=== PATIENT | female | born 1955 | race Two or more races ===

== ENCOUNTER 2018-06-12 21:34 | Inpatient (IN) | payer OTHER, MEDICAID | END 2018-06-14 23:16 | disposition short-term general hospital (02) | LOC: TELE 06-13 02:56 → ICU WEST 06-13 04:01 → ER 21:34 | DX: A41.9 Sepsis, unspecified organism (principal); R65.21 Severe sepsis with septic shock; G93.41 Metabolic encephalopathy; J18.9 Pneumonia, unspecified organism; M84.48XA Pathological fracture, other site, initial encounter for fracture; E11.9 Type 2 diabetes mellitus without complications; E78.5 Hyperlipidemia, unspecified; D72.829 Elevated white blood cell count, unspecified ==

== ENCOUNTER 2019-03-08 09:24 | Inpatient (IN) | payer OTHER, MEDICAID ==
[~2019-03-08] VITALS: Ht 147.3 cm; Wt 59.6 kg
[~2019-03-08 09:24] MED LIST: ALBUAER3 IN; Atenolol PO; CALC-317 OR; Diovan PO; LEFL20TA PO; LEVO500T21 PO; MONT10TA23 PO; MORP1TAB13 PO; MULTCHW OR; PANT40TA2 PO; SIMV-8 PO; TOFA5TAB OR; [UNRECOGNIZED DRUG - OTHER]
[2019-03-08] MEDS ORDERED: ACETAMINOPHEN 500 MG TAB PO ONE (10:45)
[2019-03-08] MEDS ORDERED: IBUPROFEN 600 MG TAB PO ONE (10:45)
[2019-03-08] MEDS ORDERED: SODIUM CHLORIDE 0.9% 1,000 ML IV ONE (10:48)
[2019-03-08] MEDS ORDERED: cefTRIAXone 1GM/50ML D5W 50 ML IV ONE (11:00)
[2019-03-08] MEDS ORDERED: ONDANSETRON HCL 4 MG/2 ML VIAL IV ONE (11:00)
[2019-03-08 11:45] LABS: Lymphocytes # (auto) 1.6 uL; Mean Corpuscular Hemoglobin 24.9 pg (28.0-32.0); Monocytes # (auto) 0.8 uL; Neutrophils # (auto) 8.1 uL; White Blood Cell 10.7 10^3/uL (4.4-10.8)
[2019-03-08 11:46] LABS: Basophils # (auto) 0 uL; Basophils % (auto) 0.4 % (0.0-2.0); Eosinophils # (auto) 0.2 uL; Eosinophils % (auto) 1.5 % (0.0-7.0); Hemoglobin 9.1 g/dL (12.2-16.2); Lymphocytes % (auto) 14.9 % (10.0-50.0); Mean Corpuscular Hgb Conc. 31.2 g/dL (32.0-36.0); Mean Corpuscular Volume 79.9 fL (80.0-100.0); Monocytes % (auto) 7.4 % (0.0-12.0); Neutrophils % (auto) 75.8 % (37.0-80.0); Nucleated Red Blood Cells % 0.1 %; Platelet Count (auto) 285 10^3/uL (140-450); Red Blood Cells 3.63 10^6/uL (4.0-5.20); Red Cell Distribution Width 17.6 % (11.8-14.3)
[2019-03-08 12:02] LABS: BUN/Creatinine Ratio 18.8; Calcium 7.7 mg/dL (8.5-10.1); Magnesium 2.3 mg/dL (1.6-2.6); Potassium 3.4 mmol/L (3.5-5.1)
[2019-03-08 12:05] LABS: Bilirubin, Total 0.3 mg/dL (0.2-1.0); Lactic Acid w/Reflex 2.9 mmol/L (0.4-2.0); Total Protein 6.7 g/dL (6.4-8.2)
[2019-03-08] MEDS ORDERED: LOSA-39 (14:50)
[2019-03-08] MEDS ORDERED: MORP30TA5 (14:50)
[2019-03-08] MEDS ORDERED: SERT-274 (14:50)
[2019-03-08] MEDS ORDERED: MONT10TA34 (14:50)
[2019-03-08] MEDS ORDERED: LINA5TAB PO (14:50)
[2019-03-08] MEDS ORDERED: PRE5T (14:50)
[2019-03-08] MEDS ORDERED: OYST500T29 (14:50)
[2019-03-08] MEDS ORDERED: SIMV10TA84 (14:50)
[2019-03-08] MEDS ORDERED: LEFL1TAB3 (14:50)
[2019-03-08] MEDS ORDERED: FLUT100I (14:50)
[2019-03-08] MEDS ORDERED: CANA100T (14:50)
[2019-03-08] MEDS ORDERED: PANT40T (14:50)
[2019-03-08] MEDS ORDERED: BUDE0.253 (14:50)
[2019-03-08] MEDS ORDERED: GAB100C PO (14:50)
[2019-03-08] MEDS ORDERED: OYST500T28 PO (14:50)
[2019-03-08] MEDS ORDERED: ATEN25TA (14:50)
[2019-03-08] MEDS ORDERED: PROAIR (14:50)
[2019-03-08] MEDS ORDERED: RIV20T (14:50)
[2019-03-08] MEDS ORDERED: traMADol HCL 50 MG TAB PO PRN (15:30)
[2019-03-08] MEDS ORDERED: ACYCLOVIR 5MG/KG Q8HR PER RX 0 ML IV SCH (15:30)
[2019-03-08] MEDS ORDERED: TEMAZEPAM 15 MG CAP PO PRN (15:30)
[2019-03-08] MEDS ORDERED: DEXTROSE (50%) 50ML SYRG IV PRN (15:30)
[2019-03-08] MEDS ORDERED: ACETAMINOPHEN 500 MG TAB PO PRN (15:30)
[2019-03-08] MEDS ORDERED: LACTULOSE 20Gm/30ML SOLN PO PRN (15:30)
[2019-03-08] MEDS ORDERED: ALBUTEROL SULF 2.5 MG/0.5ML(0.5%) NEB SOLN NEB PRN (15:30)
[2019-03-08] MEDS ORDERED: MORPHINE SULF INJ 2 MG/ML SYRINGE 1ML IV PRN (15:30)
[2019-03-08] MEDS ORDERED: PROMETHAZINE HCL 25 MG/ML 1ML IV PRN (15:30)
[2019-03-08] MEDS ORDERED: NITROGLYCERIN 0.4 MG SL TAB SL PRN (15:30)
[2019-03-08] MEDS ORDERED: OSELTAMIVIR 30 MG CAP PO ONE (16:00)
[2019-03-08] MEDS ORDERED: AZITHROMYCIN 500MG/ 250ML 250 ML IV SCH (16:00)
[2019-03-08] MEDS: SODIUM CHLORIDE 0.9% 1,000 ML IV SCH (16:30)
--- NOTE | 2019-03-08 17:00 | NUR ---
Telemetry admit from [facility]ANNA[facility] HAGEN admitted to Telemetry unit after SBAR received. Patient oriented to EMMA KU, primary RN, unit, room, bed, and unit policies regarding patient care and visiting hours. Patient now on continuous telemetry monitoring, tele box # 48 and telemetry reading on arrival to unit is . Patient placed on bedside oxygen, weighed by bed scale and encouraged to call if they need something. All questions and concerns addressed, patient verbalized understanding.
[2019-03-08 17:13] VITALS: BP 110/89
[2019-03-08] MEDS: InsuLIN REG 1unit/0.01ml Soln (100units/ml) SC SCH ×2 (17:47→21:42)
[2019-03-08] MEDS: ACCU-CHEK COMFORT CURVE STRIP VI SCH ×2 (17:48→21:42)
[2019-03-08 17:53] VITALS: BP 156/92
--- NOTE | 2019-03-08 17:58 | NUR ---
Per ER nurse Naty have no ideal when was the last time patient urinated. No UA sample at this time.
--- NOTE | 2019-03-08 18:00 | NUR ---
Flu A and B : negative , Tamiflu discontinue per protocol.
--- NOTE | 2019-03-08 19:20 | NUR ---
Opening Shift Note Assumed care of patient, awake and alert. No S/S of distress/SOB or pain. Instructed on POC and to call for assist PRN, will continue to monitor for changes Q1hr and PRN.
[2019-03-08] MEDS: ALBUTEROL SULF 2.5 MG/0.5ML(0.5%) NEB SOLN NEB SCH (19:36)
[2019-03-08] MEDS: IPRATROPIUM BROM 0.5 MG/2.5ML INH SOL NEB SCH (19:36)
[2019-03-08 20:00] VITALS: BP_SYST 132; BP_DIAS 80; BP_DIAS 95
[2019-03-08] MEDS: ACYCLOVIR SOD 50MG/ML 250 MG in D5W 5% 100 ML IV SCH (20:07)
[2019-03-08] MEDS: MORPHINE SULF 30 mg ER tab PO SCH (21:39)
[2019-03-08] MEDS: methylPREDNISolone SOD SUCC 40 MG/ML VL IV SCH (21:40)
[2019-03-08] MEDS: GABAPENTIN 100 MG CAP PO SCH (21:40)
[2019-03-08] MEDS: TOFACITINIB CITRATE 5 MG PO SCH (21:41)
[2019-03-08 21:42] LABS: Urine Bacteria NONE SEEN /hpf (None Seen); Urine Blood Negative /uL (Negative); Urine Specific Gravity 1.005 (1.001-1.035); Urine WBC 2 /hpf (0 - 5)
[2019-03-08 22:00] VITALS: BP 106/57
[2019-03-08] MEDS ORDERED: ATORVASTATIN 20 MG TAB PO SCH (22:00)
[2019-03-08] MEDS ORDERED: OSELTAMIVIR 30 MG CAP PO SCH (22:00)
[2019-03-09] MEDS: IPRATROPIUM BROM 0.5 MG/2.5ML INH SOL NEB SCH ×3 (01:22→11:25)
[2019-03-09] MEDS: ALBUTEROL SULF 2.5 MG/0.5ML(0.5%) NEB SOLN NEB SCH ×3 (01:22→11:26)
[2019-03-09 01:34] VITALS: BP 106/57
[2019-03-09] MEDS: SODIUM CHLORIDE 0.9% 1,000 ML IV SCH (04:44)
[2019-03-09 05:16] VITALS: BP 136/66
[2019-03-09] MEDS: GABAPENTIN 100 MG CAP PO SCH ×2 (06:14→13:48)
[2019-03-09] MEDS: InsuLIN REG 1unit/0.01ml Soln (100units/ml) SC SCH ×2 (06:26→11:28)
[2019-03-09] MEDS: ACCU-CHEK COMFORT CURVE STRIP VI SCH ×2 (06:26→11:28)
--- NOTE | 2019-03-09 07:23 | NUR ---
REPORT GIVEN TO BENJAMIN ZEPEDA
[2019-03-09] MEDS ORDERED: SERTRALINE HCL 50 MG TAB PO SCH (08:00)
[2019-03-09] MEDS: ACYCLOVIR SOD 50MG/ML 250 MG in D5W 5% 100 ML IV SCH (08:28)
[2019-03-09] MEDS ORDERED: cefTRIAXone 1GM/50ML D5W 50 ML IV SCH (09:00)
[2019-03-09 09:08] VITALS: BP 132/61
[2019-03-09] MEDS: methylPREDNISolone SOD SUCC 40 MG/ML VL IV SCH (09:53)
[2019-03-09] MEDS: MORPHINE SULF 30 mg ER tab PO SCH (09:53)
[2019-03-09] MEDS: TOFACITINIB CITRATE 5 MG PO SCH (09:54)
[2019-03-09] MEDS ORDERED: LEFLUNOMIDE 20 MG PO SCH (10:00)
[2019-03-09] MEDS ORDERED: MONTELUKAST SODIUM 10 MG TAB PO SCH (10:00)
[2019-03-09] MEDS ORDERED: LINAGLIPTIN BASE 5 MG PO SCH (10:00)
[2019-03-09] MEDS ORDERED: PANTOPRAZOLE 40 MG TAB PO SCH (10:00)
[2019-03-09] MEDS ORDERED: ENOXAPARIN SOD 40 MG/0.4 ML SYRINGE SC SCH (10:00)
[2019-03-09] MEDS ORDERED: RIVAROXABAN 20 MG TAB PO SCH (10:00)
[2019-03-09] MEDS ORDERED: LEVOFLOXACIN 500 MG TAB PO ONE (11:45)
[2019-03-09] MEDS ORDERED: LEVO500T21 PO (12:06)
[2019-03-09] MEDS ORDERED: PRE5T GT (12:06)
[2019-03-09 12:33] VITALS: BP 135/70
[2019-03-09 12:52] VITALS: BP 135/70
[2019-03-09 13:00] VITALS: BP 135/70
--- NOTE | 2019-03-09 15:49 | NUR ---
Discharge instructions given as ordered. Encourage to follow up with PMD (Follow up with Dr. Javier Bhakta in 1-2 weeks Address : [address] [facility] [place] [address]#[phone] )as instructed. All questions and concerns addressed. Patient verbalized understanding. Medication reconciliation form completed and copy given to patient. IV removed with catheter intact, pressure dressing applied. Telemetry unit returned to ICU. Patient taken to vehicle via wheelchair with all personal belongings, accompanied by staff and family member. No distress noted at time of departure.
[2019-03-10] MEDS ORDERED: predniSONE 20 MG TAB PO SCH (10:00)
[2019-03-10] MEDS ORDERED: LEVOFLOXACIN 500 MG TAB PO SCH (10:00)
== END 2019-03-09 15:50 | disposition home or self-care (01) | DRG 871 ==
LOC: EDBD 09:24 → ER 09:24 → TELE 09:25 → TELE-WESTW 17:13
PROVIDERS: ADMIT Internal Medicine; ATTEND Internal Medicine
DX: A41.9 Sepsis, unspecified organism (principal); J12.9 Viral pneumonia, unspecified; J44.0 Chronic obstructive pulmonary disease with (acute) lower respiratory infection; E44.0 Moderate protein-calorie malnutrition; J45.901 Unspecified asthma with (acute) exacerbation; K52.9 Noninfective gastroenteritis and colitis, unspecified; E11.21 Type 2 diabetes mellitus with diabetic nephropathy; E87.6 Hypokalemia; D63.8 Anemia in other chronic diseases classified elsewhere; E78.5 Hyperlipidemia, unspecified; I10 Essential (primary) hypertension; M19.90 Unspecified osteoarthritis, unspecified site; K21.9 Gastro-esophageal reflux disease without esophagitis; M06.9 Rheumatoid arthritis, unspecified; Z89.511 Acquired absence of right leg below knee; Z90.710 Acquired absence of both cervix and uterus; Z68.27 Body mass index [BMI] 27.0-27.9, adult; Z88.8 Allergy status to other drugs, medicaments and biological substances; Z90.49 Acquired absence of other specified parts of digestive tract
CPT/HCPCS: 36415; 71045; 80053; 81001; 82962; 83036; 83605; 83735; 85025; 87040; 87070; 87077; 87086; 87186; 87205; 87804; 93005; 94640; 94761; 96365; 96367; 96375; G0378; G9035; J0696; J1815; J2405; J7060

== ENCOUNTER 2019-03-18 07:46 | Inpatient (IN) | payer OTHER, MEDICAID ==
[2019-03-18] VITALS (57 sets, daily range): BP systolic 77–120; BP diastolic 37–61
[~2019-03-18] VITALS: Ht 149.9 cm; Wt 56.4 kg
[~2019-03-18 07:46] MED LIST changes: +ATEN25TA; +BUDE0.253; +CANA100T; +FLUT100I; +GAB100C PO; +LEFL1TAB3; +LINA5TAB PO; +LOSA-39; +MONT10TA34; +MORP30TA5; +OYST500T28 PO; +OYST500T29; +PANT40T; +PRE5T; +PRE5T GT; +PROAIR; +RIV20T; +SERT-274; +SIMV10TA84
--- NOTE | 2019-03-18 07:50 | NUR ---
Respiratory note: AT BEDSIDE ASSISTING WITH INTUBATION. PT INTUBATED WITH SIZE 8 ETT AT 22 CM AT THE LIP.
[2019-03-18] MEDS ORDERED: methylPREDNISolone SOD SUCC 125 MG/2 ML VL IV ONE (08:00)
[2019-03-18] MEDS ORDERED: ETOMIDATE (2MG/ML) 20ML VIAL IV ONE ×2 (08:07→08:30)
[2019-03-18] MEDS ORDERED: SUCCINYLCHOLINE CHLORIDE 20 MG/ML 10ML VIAL IV ONE ×2 (08:07→08:30)
[2019-03-18] MEDS ORDERED: MIDAZOLAM DRIP 50 mg/50mL 50 ML IV ONE (08:08)
[2019-03-18] MEDS ORDERED: PROPOFOL 100 ML IV ONE (08:22)
[2019-03-18] MEDS ORDERED: AZITHROMYCIN 500MG/ 250ML 250 ML IV ONE (08:30)
[2019-03-18] MEDS ORDERED: cefTRIAXone 1GM/50ML D5W 50 ML IV ONE (08:30)
[2019-03-18] MEDS: PROPOFOL 100 ML IV SCH (08:30)
[2019-03-18] MEDS: ALBUTEROL SULF 2.5 MG/0.5ML(0.5%) NEB SOLN NEB STA ×2 (08:40→12:53)
[2019-03-18] MEDS: IPRATROPIUM BROM 0.5 MG/2.5ML INH SOL NEB ONE ×2 (08:40→12:54)
[2019-03-18 08:45] LABS: Basophils # (auto) 0 uL; Basophils % (auto) 0.3 % (0.0-2.0); Eosinophils # (auto) 0 uL; Hemoglobin 8.3 g/dL (12.2-16.2); Lymphocytes # (auto) 2.4 uL; Lymphocytes % (auto) 17.2 % (10.0-50.0); Mean Corpuscular Hemoglobin 23.7 pg (28.0-32.0); Mean Corpuscular Hgb Conc. 30.5 g/dL (32.0-36.0); Mean Corpuscular Volume 77.5 fL (80.0-100.0); Monocytes # (auto) 0.3 uL; Monocytes % (auto) 2.3 % (0.0-12.0); Neutrophils # (auto) 10.9 uL; Neutrophils % (auto) 80.2 % (37.0-80.0); Nucleated Red Blood Cells % 0.1 %; Platelet Count (auto) 341 10^3/uL (140-450); Red Blood Cells 3.49 10^6/uL (4.0-5.20); White Blood Cell 13.6 10^3/uL (4.4-10.8)
[2019-03-18] MEDS ORDERED: ACETAMINOPHEN 325 MG RECT SUPP PR ONE (08:45)
[2019-03-18 09:04] LABS: Alanine Aminotransferase 11 U/L (13-56); Albumin 2.8 g/dL (3.4-5.0); Anion Gap 9 (5-15); Aspartate Aminotransferase 21 U/L (15-37); BUN/Creatinine Ratio 20.6; Blood Urea Nitrogen 26 mg/dL (7-18); Calcium 7.6 mg/dL (8.5-10.1); Carbon Dioxide 22 mmol/L (21-32); Chloride 106 mmol/L (98-107); GFR African American 55 mL/min; GFR Non-African American 45 mL/min; Glucose 171 mg/dL (74-106); Potassium 3.8 mmol/L (3.5-5.1); Sodium 137 mmol/L (136-145)
[2019-03-18 09:09] LABS: Alkaline Phosphatase 72 U/L (45-117); Bilirubin, Total 0.3 mg/dL (0.2-1.0); Total Protein 6.4 g/dL (6.4-8.2)
[2019-03-18] MEDS ORDERED: ACETAMINOPHEN 650 MG RECT SUPP PR ONE (09:15)
[2019-03-18 09:20] LABS: Urine WBC None Seen /hpf (0 - 5)
[2019-03-18] MEDS ORDERED: MIDAZOLAM DRIP 50 mg/50mL 50 ML IV SCH (09:24)
[2019-03-18 09:40] LABS: Urine Bacteria FEW /hpf (None Seen); Urine Blood Negative /uL (Negative); Urine Specific Gravity 1.014 (1.001-1.035)
[2019-03-18] MEDS ORDERED: SODIUM CHLORIDE 0.9% 1,000 ML IV ONE ×3 (09:42→09:45)
[2019-03-18] MEDS ORDERED: VANCOMYCIN PER PHARMACY 0 MG IV SCH (09:45)
[2019-03-18] MEDS ORDERED: SODIUM CHLORIDE 0.9% 1,000 ML IV SCH (09:45)
[2019-03-18] MEDS ORDERED: MORPHINE SULF INJ 2 MG/ML SYRINGE 1ML IV PRN (09:45)
[2019-03-18] MEDS ORDERED: DEXTROSE (50%) 50ML SYRG IV PRN (09:45)
[2019-03-18] MEDS ORDERED: NITROGLYCERIN 0.4 MG SL TAB SL PRN (09:45)
[2019-03-18] MEDS ORDERED: RIVAROXABAN 20 MG TAB PEG SCH (10:00)
[2019-03-18 10:14] LABS: Lactic Acid w/Reflex 2.4 mmol/L (0.4-2.0)
[2019-03-18] MEDS: ATENOLOL 25 MG TAB NG SCH (10:45)
--- NOTE | 2019-03-18 11:30 | NUR ---
Admit to ICU from ER on vent FLIP,CONSUELOadmitted to ICU via gurney on pig sticker, intubated and being bagged by Respiratory Therapist. Patient transfered to bed, connected to mechanical ventilator by therapist, CARRIE at bedside. Patient connected to ICU monitoring, weighed by bedscale, oriented to Moses biswas RN, unit, ventilator and sedation.
[2019-03-18] MEDS: ACCU-CHEK COMFORT CURVE STRIP VI SCH ×3 (11:44→22:27)
[2019-03-18] MEDS: InsuLIN REG 1unit/0.01ml Soln (100units/ml) SC SCH ×3 (11:45→22:27)
--- NOTE | 2019-03-18 11:50 | NUR ---
RT Transport Note: Patient transported to ICU 101 with DUANE KATZ. Patient transported to and from procedure on ventilator with previous ordered settings. Patient on fur dyer with alarms set and audible, ambu-bag/mask connected to 02 tank. Patient returned to room with no adverse reaction noted. Transport completed without incident.
--- NOTE | 2019-03-18 12:00 | NUR ---
WOUND CARE NOTE: IN TO SEE PATIENT AT THIS TIME FOR SKIN INTEGRITY MONITORING. PATIENT WAS RECENTLY ADMITTED, RECEIVED FROM ER. PATIENT ADMITTED TO [facility] WITH DIAGNOSIS OF ACUTE RESPIRATORY FAILURE. SHE IS INTUBATED, SEDATED. CURRENT JONNY SCORE IS 10. 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 SHE HAS NO OPEN OR DRAINING WOUNDS, NO AREAS WITH NON BLANCHABLE REDNESS TO ANY BONY PROMINENCE. PATIENT WOULD BENEFIT FROM FREQUENT TURN SCHEDULE Q 2 HOURS, PRN CONDITION PERMITS, WITH PRESSURE REDISTRIBUTION USING PILLOWS/WEDGES, BID/PRN APPLICATION WITH MOISTURE BARRIER CREAM, OPTIFOAM GENTLE SACRAL DRESSING PREVENTATIVE, DIETARY CONSULT, SKIN/WOUND CARE PLAN, CONTINUED MONITORING BY WOUND CARE TEAM.
[2019-03-18] MEDS: ALBUTEROL SULF 2.5 MG/0.5ML(0.5%) NEB SOLN NEB SCH ×3 (12:53→21:45)
[2019-03-18] MEDS: IPRATROPIUM BROM 0.5 MG/2.5ML INH SOL NEB SCH ×3 (12:53→21:45)
--- NOTE | 2019-03-18 13:35 | NUR ---
DR BLACK AT BEDSIDE, ASSESSED PATIENT AND SPOKE WITH DTR. NEW ORDERS RECEIVED FROM . SUSY LEFT FACILITY AND WILL BE BACK LATER TODAY. DTR STATED SHE WILL HAVE DR ROGERS OFFICE CALL RN AND GIVE LIST OF HOME MEDICATIONS.
[2019-03-18 14:02] LABS: INR 1.25 (0.9-1.15); Partial Thromboplastin Time 30.9 sec (23.64-32.05)
--- NOTE | 2019-03-18 14:08 | NUR ---
Respiratory note: HAD TO MANUALLY ADMINISTER THE Q 6 TX DUE TO THE ORDER TIME WAS WRONG
--- NOTE | 2019-03-18 14:25 | NUR ---
PAGEGio MILLER NP REGARDING TROPONIN RESULTS
--- NOTE | 2019-03-18 14:30 | NUR ---
SPOKE WITH NIYAH MILLER NP, AWARE OF ELEVATED TROPONIN. NEW ORDERS RECEIVED.
[2019-03-18] MEDS: VANCOMYCIN 1GM/250ML 250 ML IV SCH (14:47)
[2019-03-18] MEDS: fentaNYL Drip 2500mCg/250mlNS 250 ML IV SCH (14:48)
--- NOTE | 2019-03-18 15:15 | NUR ---
SPOKE WITH DR LAMBERT, NEW ORDER RECEIVED FOR ECHOCARDIOGRAM
[2019-03-18] MEDS: NOREPINEPHRINE 8 MG/250ML KIT 250 ML IV SCH (17:00)
[2019-03-18] MEDS: PIPERACILLIN-TAZOB 3.375GM 100 ML IV SCH (17:49)
[2019-03-18] MEDS: SODIUM CHLORIDE 0.9% 1,000 ML IV SCH ×2 (17:49→21:22)
--- NOTE | 2019-03-18 18:00 | NUR ---
DR LAMBERT AT BEDSIDE, EXAMINED PATIENT AND SPOKE WITH DTR
--- NOTE | 2019-03-18 18:30 | NUR ---
SPOKE WITH DTR IN LAW ON PHONE, UPDATED ON PLAN OF CARE AFTER PASSWORD OBTAINED, ALL QUESTIONS ADDRESSED
--- NOTE | 2019-03-18 20:00 | NUR ---
Patient bathe/linen change Patient given complete bath. Skin integrity assessed for any changes. Linens changed. Patient repositioned for comfort.
[2019-03-19] VITALS (105 sets, daily range): BP systolic 80–149; BP diastolic 31–91
[2019-03-19] MEDS: PIPERACILLIN-TAZOB 3.375GM 100 ML IV SCH ×5 (00:14→23:45)
[2019-03-19] MEDS: PROPOFOL 100 ML IV SCH ×3 (01:51→18:24)
[2019-03-19 05:32] LABS: Basophils # (auto) 0 uL; Eosinophils # (auto) 0 uL; Hematocrit 21.6 % (36.0-46.0); Lymphocytes # (auto) 1.7 uL; Lymphocytes % (auto) 7.9 % (10.0-50.0); Mean Corpuscular Hemoglobin 23.9 pg (28.0-32.0); Mean Corpuscular Volume 77.1 fL (80.0-100.0); Monocytes # (auto) 0.9 uL; Monocytes % (auto) 4.4 % (0.0-12.0); Neutrophils # (auto) 18.7 uL; Neutrophils % (auto) 87.7 % (37.0-80.0); Platelet Count (auto) 333 10^3/uL (140-450); Red Cell Distribution Width 19.1 % (11.8-14.3); White Blood Cell 21.3 10^3/uL (4.4-10.8)
[2019-03-19] MEDS: IPRATROPIUM BROM 0.5 MG/2.5ML INH SOL NEB SCH ×3 (05:36→18:28)
[2019-03-19] MEDS: ALBUTEROL SULF 2.5 MG/0.5ML(0.5%) NEB SOLN NEB SCH ×3 (05:36→18:28)
[2019-03-19 05:52] LABS: BUN/Creatinine Ratio 20.4; Calcium 7.4 mg/dL (8.5-10.1); Potassium 3.9 mmol/L (3.5-5.1)
[2019-03-19 05:54] LABS: Hemoglobin 6.7 g/dL (12.2-16.2)
[2019-03-19] MEDS: InsuLIN REG 1unit/0.01ml Soln (100units/ml) SC SCH ×4 (05:54→22:55)
[2019-03-19] MEDS: ACCU-CHEK COMFORT CURVE STRIP VI SCH ×4 (05:54→22:55)
--- NOTE | 2019-03-19 06:41 | NUR ---
Sedation increased patient is so restless, removed mittens, trying to remove ett. Diprivan kept at 30 mcg.
--- NOTE | 2019-03-19 07:30 | NUR ---
REPORT REPORT RECEIVED FROM DB RNREBECCA. BEDSIDE CHECK DONE.
[2019-03-19] MEDS ORDERED: cefTRIAXone 1GM/50ML D5W 50 ML IV SCH (08:00)
--- NOTE | 2019-03-19 08:30 | NUR ---
ASSESSMENT PT RESTING IN BED WITH EYES CLOSED BUT OPENS EYES TO NAME AND FOLLOWS SIMPLE COMMANDS AND NODS HEAD APPROPRIATELY TO YES/NO QUESTIONS. MITTENS TO BOTH HANDS TO PREVENT PULLING AT TUBES. NO IMPAIRMENT TO CIRCULATION. ON THE VENTILATOR WITH 8 FR ETT/23 AT THE LIP, TV 500, AC 14, 35% FIO2 AND PEEP OF 5. LUNGS WITH INSPIRATORY WHEEZES AND COARSE ON EXPIRATION. SUCTIONED FOR SMALL AMOUNT OF THIN CLEAR FLUID AND ORAL CARE PROVIDED. O2 SAT OF 99%. TELE SR WITH INVERTED T WAVE IN LEAD I AND OCC PVCS. PALPABLE PULSES TO ALL EXTREMITIES. SCD TO LLE AND R BKA. ABD SOFT WITH HYPOACTIVE BOWEL SOUNDS NOTED. OGT WITH + PLACEMENT AND TO LIS WITH MED BROWN COLORED FLUID DRAINING. SMALL BROWN BM. PERICARE GIVEN AND CAIR PAD CHANGED. ROB CATHETER DRAINING PALE CLEAR YELLOW URINE. OPTIFOAM TO SACRUM WITH SKIN BLANCHABLE PINK UNDER DRESSING. IVF TO RIJ TLC WITH SITE BENIGN AND DRESSING CHANGED 03/18. PT TURNED FOR COMFORT TO HER RIGHT SIDE.
--- NOTE | 2019-03-19 09:15 | NUR ---
FAMILY RETURNED CALL FROM PT'S DAUGHTER IN LAW, TONY, AND UPDATED HER ON THE PT'S CONDITION, POC AND NEED FOR BLOOD TRANSFUSION.
--- NOTE | 2019-03-19 09:18 | NUR ---
FAMILY/CONSENT FOR BLOOD TRANSFUSION CALLED AND SPOKE WITH PT'S DAUGHTER, KONSTATNIN, TO TRY AND OBTAIN CONSENT FOR A BLOOD TRANSFUSION. SHE WANTS TO CHECK WITH HER BROTHER BEFORE DECIDING. SHE WILL TALK WITH HIM AND THEN LET ME KNOW.
[2019-03-19] MEDS ORDERED: AZITHROMYCIN 500MG/ 250ML 250 ML IV SCH (10:00)
[2019-03-19] MEDS: ENOXAPARIN SOD 40 MG/0.4 ML SYRINGE SC SCH ×2 (10:00→11:01)
[2019-03-19] MEDS: ASPirin 81 mg TAB PO SCH ×2 (10:00→11:00)
[2019-03-19] MEDS: ATENOLOL 25 MG TAB NG SCH (11:00)
[2019-03-19] MEDS: SODIUM CHLORIDE 0.9% 1,000 ML IV SCH (11:01)
--- NOTE | 2019-03-19 11:10 | NUR ---
STARTED FIRST OF 2 NITS OF PRBC ORDERED. CONSENT OBTAINED FROM PT'S DAUGHTER, KONSTANTIN. WILL MONITOR FOR ANY ADVERSE EFFECTS.
--- NOTE | 2019-03-19 11:52 | NUR ---
NUTRITION CONSULT/ASSESSMENT NOTES Please refer to link notes of nutrition screen form filed under the intervention section of the plan of care for further details. Est. Needs: 1200 kcal to 1450 kcal (20-25 kcal/kgBW), 59 gms to 77 gms pro (1.0-1.2 gms/kgBW). Will continue to monitor pertinent labs and reassess nutrient need prn Thank you for this consult. Addendum: 03/19/19 at [address] Amended: Links added.
--- NOTE | 2019-03-19 12:00 | NUR ---
TOLERATING BLOOD TRANSFUSION WITH NO ADVERSE EFFECTS NOTED.
[2019-03-19] MEDS: NOREPINEPHRINE 8 MG/250ML KIT 250 ML IV SCH (13:30)
[2019-03-19] MEDS: VANCOMYCIN 1GM/250ML 250 ML IV SCH (15:00)
[2019-03-19] MEDS ORDERED: FUROSEMIDE 40 MG/4 ML VIAL IV ONE (15:00)
[2019-03-19] MEDS ORDERED: FUROSEMIDE 40 MG/4 ML VIAL ONE (15:08)
--- NOTE | 2019-03-19 16:50 | NUR ---
MD VISIT PT SEEN AND EXAMINED BY DR LAMBERT. UPDATED ON PT'S CURRENT CONDITION INCLUDING BLOOD TRANSFUSION AND MOST RECENT LABS, AND CHANGING TO PRECEDEX SO PT CAN BE CPAPED.
[2019-03-19] MEDS: DexMEDEtomidine 400 MCG in D5W 5% 96 ML IV SCH (17:15)
[2019-03-19] MEDS: fentaNYL Drip 2500mCg/250mlNS 250 ML IV SCH (18:26)
[2019-03-20] VITALS (48 sets, daily range): BP systolic 89–174; BP diastolic 40–86
[2019-03-20] MEDS: ALBUTEROL SULF 2.5 MG/0.5ML(0.5%) NEB SOLN NEB SCH ×4 (00:05→18:58)
[2019-03-20] MEDS: IPRATROPIUM BROM 0.5 MG/2.5ML INH SOL NEB SCH ×4 (00:05→18:57)
--- NOTE | 2019-03-20 00:15 | NUR ---
PATIENT IS AGITATED WHEN VENTILATOR WAS ALARMING RN WENT TO CHECK THE PATIENT. PATIENT WAS HOLDING ON ETT AND TRYING TO PULL OUT. RT.ARM MITTENS WERE OFF. PLACED BOTH MITTENS BACK ON. INCREASED DIPRIVAN DRIP.
[2019-03-20] MEDS: PROPOFOL 100 ML IV SCH (02:07)
[2019-03-20] MEDS: PIPERACILLIN-TAZOB 3.375GM 100 ML IV SCH ×4 (05:48→23:52)
--- NOTE | 2019-03-20 06:00 | NUR ---
PRECEDEX STARTED PRECEDEX 0.2MCG/KG/HR FOR CPAP TRIAL. STOPPED DIPRIVAN DRIP.
[2019-03-20] MEDS: InsuLIN REG 1unit/0.01ml Soln (100units/ml) SC SCH ×4 (06:37→22:00)
[2019-03-20] MEDS: ACCU-CHEK COMFORT CURVE STRIP VI SCH ×4 (06:37→22:03)
[2019-03-20 07:00] LABS: Eosinophils # (auto) 0.2 uL; Hemoglobin 10.4 g/dL (12.2-16.2); Nucleated Red Blood Cells % 0.1 %; Platelet Count (auto) 253 10^3/uL (140-450)
[2019-03-20 07:03] LABS: Basophils # (auto) 0.1 uL; Basophils % (auto) 0.4 % (0.0-2.0); Eosinophils % (auto) 1.2 % (0.0-7.0); Hematocrit 32.3 % (36.0-46.0); Lymphocytes # (auto) 2.4 uL; Lymphocytes % (auto) 17.3 % (10.0-50.0); Mean Corpuscular Hemoglobin 25.2 pg (28.0-32.0); Mean Corpuscular Hgb Conc. 32.1 g/dL (32.0-36.0); Mean Corpuscular Volume 78.4 fL (80.0-100.0); Monocytes # (auto) 0.9 uL; Monocytes % (auto) 6.3 % (0.0-12.0); Neutrophils # (auto) 10.5 uL; Neutrophils % (auto) 74.8 % (37.0-80.0); Red Blood Cells 4.12 10^6/uL (4.0-5.20); Red Cell Distribution Width 17.9 % (11.8-14.3); White Blood Cell 14.1 10^3/uL (4.4-10.8)
[2019-03-20 07:19] LABS: Calcium 7.5 mg/dL (8.5-10.1); Magnesium 2.3 mg/dL (1.6-2.6); Potassium 3.2 mmol/L (3.5-5.1)
[2019-03-20 07:21] LABS: BUN/Creatinine Ratio 17.3
--- NOTE | 2019-03-20 07:30 | NUR ---
REPORT RECEIVED FROM NIGHT RN, REBECCA. PT AGITATED DURING REPORT AND REMOVED ONE MITTEN AND WAS TRYING TO GET AT HER ETT. MITTEN REAPPLIED AND INCREASED PRECEDEX DRIP. REBECCA,DB RN, CALLED PT'S DAUGHTER AND SHE IS COMING IN TO SIT WITH HER MOTHER.
--- NOTE | 2019-03-20 08:05 | NUR ---
ASSESSMENT PT MORE RELAXED WITH INCREASED PRECEDEX DOSE AND WITH HER DAUGHTER AT THE BEDSIDE. ABLE TO HELP TURN IN BED AND FOLLOWS SIMPLE COMMANDS. VENT SETTINGS: 8 FR ETT/23 AT THE LIP, TV 500, AC 14, 35% AND PEEP OF 5. LUNGS CLEAR THROUGHOUT. O2 SAT OF 95%. TELE SR 97, WITH INVERTED T WAVE IN LEAD I. PALPABLE PULSES TO ALL EXTREMITIES WITH NO EDEMA NOTED . ABD SOFT WITH HYPOACTIVE BOWEL SOUNDS NOTED. ROB CATHETER DRAINING CLEAR YELLOW URINE .TURNED PT TO HER RIGHT SIDE . SACRAL OPTIFOAM IN PLACE WITH SKIN CLEAR UNDERNEATH. LABIA SLIGHTLY RED AND Z GUARD CREAM APPLIED. ON FENTANYL AT 100 MCG AND TURNED DOWN TO 90 MCG/HR AND PRECEDEX AT 0.7 MCG/KG/HR. CONTINUE TO MONITOR..
--- NOTE | 2019-03-20 09:22 | NUR ---
Respiratory note: PLACED PT ON CPAP PER DR COFFEY'S ORDERS. PT IS AWAKE, FOLLOWING SIMPLE COMMANDS, WITH PT'S DAUGHTER AT BEDSIDE. NOTIFIED DUANE VARELA OF CHANGES. BREATH SOUNDS CLEAR, SUCTION NOT INDICATED AT THIS TIME. ALARMS SET AND AUDIBLE. WEANING PARAMETERS AND ABG TO FOLLOW. WILL CONTINUE TO MONITOR.
--- NOTE | 2019-03-20 09:41 | NUR ---
RESPIRATORY PT ON CPAP TRIAL SINCE 921. PT RESTING IN BED WITH EYES CLOSED BUT RESPONDS TO NAME AND FOLLOWS SIMPLE COMMANDS. VS: 80-20-96% AND 132/65. PT'S DAUGHTER AT THE BEDSIDE.
[2019-03-20] MEDS: ATENOLOL 25 MG TAB NG SCH ×2 (10:00→16:57)
[2019-03-20] MEDS: ASPirin 81 mg TAB PO SCH ×2 (10:00→16:58)
--- NOTE | 2019-03-20 10:35 | NUR ---
Respiratory note: WEANING PARAMETERS OBTAINED: NIF -25, VC 946 ML, RSBI 24, LEAK 167 ML. PT RESTING IN BED WITH EYES CLOSED, AWAKE AND OPENS EYES WHEN STIMULATED, ABLE TO FOLLOW SIMPLE COMMANDS. PT'S DAUGHTER AT BEDSIDE. ABG DRAWN, RESULTS TO FOLLOW.
[2019-03-20] MEDS ORDERED: PANTOPRAZOLE 40 MG/10 ML VIAL INJ IV ONE (11:00)
--- NOTE | 2019-03-20 11:00 | NUR ---
EXTUBATED PT WITH DUANE VARELA AT BEDSIDE, PROCEDURE WENT WITHOUT INCIDENT. PT NOW ON COOL AEROSOL MASK 35%, 10L. HR 82, RR 18, POX 96%, NO STRIDOR NOTED AT THIS TIME.
[2019-03-20] MEDS: POTASSIUM CHL 20MEQ/100ML 100 ML IV SCH ×2 (11:25→13:29)
[2019-03-20] MEDS: ENOXAPARIN SOD 40 MG/0.4 ML SYRINGE SC SCH (11:26)
--- NOTE | 2019-03-20 11:30 | NUR ---
PT INCONTINENT OF SMALL AMOUNT OF LOOSE SOFT BROWN BM. CHELY CARE GIVEN AND CAIR PAD CHANGED. ACCUCHECK OF 104 AND NO COVERAGE NEEDED.
[2019-03-20] MEDS: fentaNYL Drip 2500mCg/250mlNS 250 ML IV SCH (13:29)
[2019-03-20] MEDS: NOREPINEPHRINE 8 MG/250ML KIT 250 ML IV SCH (13:30)
[2019-03-20] MEDS: VANCOMYCIN 1GM/250ML 250 ML IV SCH (13:36)
--- NOTE | 2019-03-20 13:45 | NUR ---
assessment Patient is a 64 year old female in ICU. Per patients daughter Lisa prior to admission patient lived home with her and functioned with her assistance of cooking and cleaning. Patients PCP is Dr Ayala. Patient has been on service with [facility]. Patient has a fww for home use. Per Lisa patient was just discharged home recently and she had to call 911 due to SOB. Per Lisa patient was discharged too soon. I informed Lisa that patients post discharge needs to be determined prior to discharge. Lisa agreed. I informed Lisa she has a right to speak to a older adult social work specialist regarding all care. I informed Lisa she has a right to participate in any and all discharge planning. Patient does not have a POA and advanced directive. I have offered patient information on POA and advanced directives. I informed the patient the advantages and benefits of having an Advanced Directive. Patient verbalized understanding and agreed to discharge plan. Addendum: 03/20/19 at 1352 by Stephanie BARTH Amended: Links added.
--- NOTE | 2019-03-20 14:00 | NUR ---
ELIMINATION PT INCONTINENT OF LARGE AMOUNT OF SOFT BROWN BM., THIRD BM THIS SHIFT. CHELY CARE PROVIDED AND PARTIAL LINEN CHANGE AND GOWN CHANGE DONE. RAILS UP FOR PT SAFETY. CONTINUE TO MONITOR.
--- NOTE | 2019-03-20 14:20 | NUR ---
NUTRITION SPOKE WITH DR COFFEY AND LUIS TO FEED PT A CLEAR LIQUID DIET AND ADVANCE TO A STANDARD CARB DIET TOLERATED.
[2019-03-20] MEDS: DexMEDEtomidine 400 MCG in D5W 5% 96 ML IV SCH (14:57)
--- NOTE | 2019-03-20 19:00 | NUR ---
OPENING NOTE ASSUMED CARE OF PATIENT AT THIS TIME. REPORT RECEIVED FROM DAY SHIFT RN. POC REVIEWED. HEAD TO TOE ASSESSMENT COMPLETE, SEE INTERVENTION SPREADSHEET FOR COMPLETE DETAILS. RECEIVED PT ALERT AND ORIENTED X4, VSS ON 2 LTS NC. IV SITE BENIGN. ROB CATHETER DRAINING TO GRAVITY. BED LOCKED AND IN LOWEST POSITION, SAFETY PRECAUTIONS IN PLACE. WILL MONITOR PT CAREFULLY.
--- NOTE | 2019-03-20 20:22 | NUR ---
DAUGHTER IN LAW TONY CALLED FOR UPDATE. PW PROVIDED, ALL QUESTIONS ADDRESSED AT THIS TIME. PER TONY, PT HAS DIFFICULTY ACCESSING DR'S APPOINTMENTS AND WANTS TO MAKE SURE TESTS AND PROCEDURES CAN BE DONE ON ADMISSION IF POSSIBLE.
[2019-03-21] VITALS (22 sets, daily range): BP systolic 113–159; BP diastolic 54–81
[2019-03-21] MEDS: ALBUTEROL SULF 2.5 MG/0.5ML(0.5%) NEB SOLN NEB SCH ×4 (00:02→22:16)
[2019-03-21] MEDS: IPRATROPIUM BROM 0.5 MG/2.5ML INH SOL NEB SCH ×4 (00:02→22:16)
--- NOTE | 2019-03-21 02:35 | NUR ---
report given to naomy bills
[2019-03-21 04:37] LABS: Calcium 8.2 mg/dL (8.5-10.1)
[2019-03-21 04:44] LABS: BUN/Creatinine Ratio 10.2
[2019-03-21] MEDS: PIPERACILLIN-TAZOB 3.375GM 100 ML IV SCH ×2 (06:00→12:57)
[2019-03-21] MEDS: InsuLIN REG 1unit/0.01ml Soln (100units/ml) SC SCH ×4 (07:00→22:00)
[2019-03-21] MEDS: ACCU-CHEK COMFORT CURVE STRIP VI SCH ×4 (07:10→22:13)
[2019-03-21] MEDS: POTASSIUM CHL 20MEQ/100ML 100 ML IV SCH ×3 (07:58→12:57)
[2019-03-21] MEDS ORDERED: VANCOMYCIN PER PHARMACY 0 MG IV SCH (08:00)
--- NOTE | 2019-03-21 09:30 | NUR ---
ICU patient trans to floor SBAR faxed and confirmed receipt by . [id number] and portable [facility]. All patient medications and personal belongings transferred with patient to receiving floor. Patient care transferred to
--- NOTE | 2019-03-21 09:45 | NUR ---
PATIENT BROUGHT UP TO TELE FLOOR. RECIEVED REPORT FROM DUANE DELAROSA. PATIENT ORIENTED TO DUANE MONET. PATIENT ORIENTED TO HOSPITAL ROOM AND CALL LIGHT. PATIENT A &OX4. DENIES ANY PAIN AT THIS TIME. PATIENT ON TELE MONITOR 86. PATIENT UPDATED ON POC. ALL QUESTIONS ANSWERED. BED IN LOWEST LOCKED POSITION WITH CALL LIGHT WITHIN REACH. WILL CONTINUE CARE.
[2019-03-21] MEDS: ATENOLOL 25 MG TAB NG SCH (10:00)
[2019-03-21] MEDS ORDERED: PANTOPRAZOLE 40 MG/10 ML VIAL INJ IV SCH (10:00)
[2019-03-21] MEDS: ENOXAPARIN SOD 40 MG/0.4 ML SYRINGE SC SCH (10:52)
[2019-03-21] MEDS: ASPirin 81 mg TAB PO SCH (10:52)
--- NOTE | 2019-03-21 11:52 | NUR ---
PT Patient requested to comeback after lunch to do PT. Addendum: 03/21/19 at 1152 by MATT QUIJANO PTT Amended: Links added.
--- NOTE | 2019-03-21 12:49 | NUR ---
1.) If still NPO, consider alternate nutrition support of medically appropriate. 2.) EN support preferred with formula chpoice of Glucerna 1.2 Nima @ 40 ml/hr goal rate as tolerated while on current rate of Propofol when medically appropriate. 3.) If Albumin level continues trending down, consider Prostat 1 pkt BID. 4.) Advance gradually to oral diet when medically appropriate. 5.) Refer to CDE/RD for further nutrition educ. and weight monitoring upon discharge. 6.) Continue current plan of care.
[2019-03-21] MEDS: VANCOMYCIN 1GM/250ML 250 ML IV SCH (13:00)
--- NOTE | 2019-03-21 14:16 | NUR ---
PT Patient refused to be OOB during PT visit. Attempted to perform TIARA from bed however patient has BM and requested to be cleaned. Addendum: 03/21/19 at 1418 by MATT QUIJANO PTT Amended: Links added.
--- NOTE | 2019-03-21 14:30 | NUR ---
Dania GIVENS AT BEDSIDE. UPDATED ON PATIENT STATUS. RECEIVED NEW ORDERS. WILL FOLLOW THROUGH.
[2019-03-21] MEDS: cefTRIAXone 1GM/50ML D5W 50 ML IV SCH (17:18)
[2019-03-21] MEDS ORDERED: PANTOPRAZOLE 40 MG TAB PO ONE (18:00)
--- NOTE | 2019-03-21 18:30 | NUR ---
CALLED PHARMACY REGARDING VANCOMYCIN. SAID THEY WILL SEND IT UP IN 20 MINUTES.
[2019-03-21] MEDS: ACETAMINOPHEN 500 MG TAB PO PRN (18:51)
--- NOTE | 2019-03-21 19:00 | NUR ---
ENDORSED CARE TO DUANE CENTENO.
[2019-03-21] MEDS: VANCOMYCIN HCL 125MG/5ML ORAL SOL PO SCH (19:25)
--- NOTE | 2019-03-21 23:00 | NUR ---
Left V/M for Dr. Orona d/t patient having coarse crackles throughout all lung [place] as well as patients c/o peripheral neuropathy in left foot. States that she takes Gabapentin at home and is request this be continued while inpatient. Awaiting call back.
[2019-03-22] VITALS (7 sets, daily range): BP systolic 102–146; BP diastolic 61–71
[2019-03-22] MEDS ORDERED: FUROSEMIDE 20 MG/2 ML VIAL IV ONE
--- NOTE | 2019-03-22 00:01 | NUR ---
Received call from Dr. Aguayo. New orders received. Will follow through
[2019-03-22] MEDS: VANCOMYCIN HCL 125MG/5ML ORAL SOL PO SCH ×4 (00:28→18:51)
[2019-03-22] MEDS: ALBUTEROL SULF 2.5 MG/0.5ML(0.5%) NEB SOLN NEB SCH ×6 (02:41→22:28)
[2019-03-22] MEDS: IPRATROPIUM BROM 0.5 MG/2.5ML INH SOL NEB SCH ×6 (02:41→22:28)
[2019-03-22] MEDS: GABAPENTIN 100 MG CAP PO SCH ×3 (05:29→21:38)
[2019-03-22 05:47] LABS: Basophils # (auto) 0.1 uL; Basophils % (auto) 0.8 % (0.0-2.0); Eosinophils # (auto) 0.4 uL; Monocytes # (auto) 0.7 uL; White Blood Cell 8.6 10^3/uL (4.4-10.8)
[2019-03-22 05:51] LABS: Eosinophils % (auto) 5.2 % (0.0-7.0); Hemoglobin 13.5 g/dL (12.2-16.2); Lymphocytes # (auto) 1.4 uL; Lymphocytes % (auto) 16.4 % (10.0-50.0); Mean Corpuscular Hemoglobin 25.6 pg (28.0-32.0); Mean Corpuscular Hgb Conc. 32.9 g/dL (32.0-36.0); Mean Corpuscular Volume 77.8 fL (80.0-100.0); Monocytes % (auto) 8.1 % (0.0-12.0); Neutrophils % (auto) 69.5 % (37.0-80.0); Nucleated Red Blood Cells % 0.1 %; Platelet Count (auto) 274 10^3/uL (140-450); Red Blood Cells 5.27 10^6/uL (4.0-5.20); Red Cell Distribution Width 18.7 % (11.8-14.3)
[2019-03-22 06:12] LABS: Potassium 3.3 mmol/L (3.5-5.1)
[2019-03-22 06:19] LABS: Calcium 8.8 mg/dL (8.5-10.1)
[2019-03-22] MEDS: ACCU-CHEK COMFORT CURVE STRIP VI SCH ×4 (06:31→21:39)
[2019-03-22] MEDS: InsuLIN REG 1unit/0.01ml Soln (100units/ml) SC SCH ×4 (06:31→21:38)
--- NOTE | 2019-03-22 07:30 | NUR ---
Opening Shift Note Assumed care of patient, awake and alert. No S/S of distress/SOB or pain. Instructed on POC and to call for assist PRN, will continue to monitor for changes Q1hr and PRN.
[2019-03-22] MEDS ORDERED: FUROSEMIDE 20 MG/2 ML VIAL IV SCH (10:00)
[2019-03-22] MEDS: cefTRIAXone 1GM/50ML D5W 50 ML IV SCH (10:22)
[2019-03-22] MEDS: ASPirin 81 mg TAB PO SCH (10:22)
[2019-03-22] MEDS: PANTOPRAZOLE 40 MG TAB PO SCH (10:22)
[2019-03-22] MEDS: ENOXAPARIN SOD 40 MG/0.4 ML SYRINGE SC SCH (10:23)
[2019-03-22] MEDS: ATENOLOL 25 MG TAB PO SCH (10:23)
[2019-03-22] MEDS ORDERED: POTASSIUM CHL 20 Meq TABLET PO ONE (11:15)
[2019-03-22] MEDS: CHOLESTYRAMINE 4 GM POWDER PO SCH (18:50)
--- NOTE | 2019-03-22 19:25 | NUR ---
OPENING SHIFT NOTE Assumed care of patient who is A&Ox4. Currently on 3L NC with no c/o SOB. Denies pain at this time. Pericare provided for one episode of loose stool. Barrier cream applied and patient repositioned. Right IJ Triple lumen catheter intact and patent. Patient is on bedrest d/t right BKA; states she has a prosthetic and is ambulatory at home. POC discussed with patient and all questions answered. Bed is in low locked position with side rails up x2. call light is within reach. Will continue to monitor for changes PRN.
[2019-03-22] MEDS: ACETAMINOPHEN 500 MG TAB PO PRN (21:50)
[2019-03-23] MEDS: VANCOMYCIN HCL 125MG/5ML ORAL SOL PO SCH ×3 (00:01→12:54)
[2019-03-23] MEDS: ALBUTEROL SULF 2.5 MG/0.5ML(0.5%) NEB SOLN NEB SCH ×3 (02:27→10:02)
[2019-03-23] MEDS: IPRATROPIUM BROM 0.5 MG/2.5ML INH SOL NEB SCH ×3 (02:27→10:03)
[2019-03-23 05:49] VITALS: BP 119/65
[2019-03-23] MEDS: GABAPENTIN 100 MG CAP PO SCH (06:27)
[2019-03-23] MEDS: ACCU-CHEK COMFORT CURVE STRIP VI SCH ×2 (06:28→11:35)
[2019-03-23] MEDS: InsuLIN REG 1unit/0.01ml Soln (100units/ml) SC SCH ×2 (06:37→11:30)
[2019-03-23 06:50] LABS: BUN/Creatinine Ratio 14.6; Potassium 4.2 mmol/L (3.5-5.1)
[2019-03-23 08:00] VITALS: BP 137/77
[2019-03-23 09:03] VITALS: BP 137/77
[2019-03-23] MEDS: PANTOPRAZOLE 40 MG TAB PO SCH (09:53)
[2019-03-23] MEDS: ASPirin 81 mg TAB PO SCH (09:53)
[2019-03-23] MEDS: ATENOLOL 25 MG TAB PO SCH (09:54)
[2019-03-23] MEDS: ENOXAPARIN SOD 40 MG/0.4 ML SYRINGE SC SCH (09:55)
[2019-03-23] MEDS ORDERED: SULFAMETHOX W/TRIMETH(800/160MG) DS TAB PO SCH (10:00)
--- NOTE | 2019-03-23 11:22 | NUR ---
PATIENT OFF OF OXYGEN. SATURATION STAYING AT 96-97 PERCENT ON ROOM AIR. TOLERATING WELL WITH NO SIGNS OF DISTRESS OR SOB. WILL CONTINUE TO MONITOR PATIENT.
[2019-03-23] MEDS: CHOLESTYRAMINE 4 GM POWDER PO SCH ×2 (11:36)
[2019-03-23 12:09] VITALS: BP 137/77
[2019-03-23 12:49] VITALS: BP 119/69
--- NOTE | 2019-03-23 13:50 | NUR ---
Discharge instructions given as ordered. Encourage to follow up with PMD as instructed. All questions and concerns addressed. Patient verbalized understanding. Triple lumen picc to EJ removed with catheter intact, pressure dressing applied, mejias catheter removed, 250 ml of clear yellow urine emptied. Telemetry unit returned to ICU. Patient taken to vehicle via wheelchair with all personal belongings, accompanied by staff and family member. No distress noted at time of departure.
== END 2019-03-23 13:50 | disposition home or self-care (01) | DRG 871 ==
LOC: EDBD 07:46 → ER 07:46 → EDUNIT# 07:46 → OVERFLOW 07:47 → ICU WEST 11:23 → TELE-WESTW 03-21 09:36
PROVIDERS: ADMIT Nurse Practitioner Acute Care; ATTEND Internal Medicine
PROC: 0BH17EZ Insertion of Endotracheal Airway into Trachea, Via Natural or Artificial Opening (ICD-10-PCS; principal; 2019-03-18)
PROC: 02HV33Z Insertion of Infusion Device into Superior Vena Cava, Percutaneous Approach (ICD-10-PCS; 2019-03-18)
PROC: 5A1945Z Respiratory Ventilation, 24-96 Consecutive Hours (ICD-10-PCS; 2019-03-18)
PROC: 30233N1 Transfusion of Nonautologous Red Blood Cells into Peripheral Vein, Percutaneous Approach (ICD-10-PCS; 2019-03-19)
DX: A41.9 Sepsis, unspecified organism (principal); J96.01 Acute respiratory failure with hypoxia; I21.A1 Myocardial infarction type 2; R65.21 Severe sepsis with septic shock; J15.6 Pneumonia due to other Gram-negative bacteria; E44.0 Moderate protein-calorie malnutrition; E87.3 Alkalosis; J44.0 Chronic obstructive pulmonary disease with (acute) lower respiratory infection; J44.1 Chronic obstructive pulmonary disease with (acute) exacerbation; N39.0 Urinary tract infection, site not specified; K21.9 Gastro-esophageal reflux disease without esophagitis; M06.9 Rheumatoid arthritis, unspecified; N18.3 Chronic kidney disease, stage 3 (moderate); I12.9 Hypertensive chronic kidney disease with stage 1 through stage 4 chronic kidney disease, or unspecified chronic kidney disease; F41.9 Anxiety disorder, unspecified; M19.90 Unspecified osteoarthritis, unspecified site; E11.65 Type 2 diabetes mellitus with hyperglycemia; E11.69 Type 2 diabetes mellitus with other specified complication; B96.20 Unspecified Escherichia coli [E. coli] as the cause of diseases classified elsewhere; E11.22 Type 2 diabetes mellitus with diabetic chronic kidney disease; E11.51 Type 2 diabetes mellitus with diabetic peripheral angiopathy without gangrene; E78.5 Hyperlipidemia, unspecified; D63.8 Anemia in other chronic diseases classified elsewhere; Y95 Nosocomial condition; J44.9 Chronic obstructive pulmonary disease, unspecified; Z90.710 Acquired absence of both cervix and uterus; Z89.519 Acquired absence of unspecified leg below knee; Z89.511 Acquired absence of right leg below knee; Z90.49 Acquired absence of other specified parts of digestive tract; Z79.899 Other long term (current) drug therapy; Z68.25 Body mass index [BMI] 25.0-25.9, adult
CPT/HCPCS: 31500; 36415; 36556; 36600; 71045; 80048; 80053; 80202; 81001; 82805; 82962; 83036; 83605; 83735; 83880; 84132; 84484; 85025; 85610; 85730; 86850; 86900; 86901; 86920; 87040; 87070; 87077; 87081; 87086; 87088; 87186; 87205; 87804; 93005; 93306; 94002; 94003; 94640; 96365; 96368; 96375; 97110; 97116; 97530; 99291; C9113; G0378; J0330; J0696; J1815; J2250; J2543; J2704; J3480; J7060

== ENCOUNTER → 2020-01-20 | Emergency (ER) | payer OTHER, MEDICAID ==
[~2020-01-20] VITALS: Ht 147.3 cm; Wt 56.7 kg
[~2020-01-20] MED LIST changes: +HYDROcodone-ACET 5/325MG TAB PO ONE; -LEVO500T21 PO
[2020-01-20 12:44] VITALS: BP 100/49
== END | disposition home or self-care (01) ==
LOC: ER 11:48
DX: S52.131A Displaced fracture of neck of right radius, initial encounter for closed fracture (principal); S52.201A Unspecified fracture of shaft of right ulna, initial encounter for closed fracture; M19.90 Unspecified osteoarthritis, unspecified site; J44.9 Chronic obstructive pulmonary disease, unspecified; E11.9 Type 2 diabetes mellitus without complications; E78.00 Pure hypercholesterolemia, unspecified; I10 Essential (primary) hypertension; Z79.899 Other long term (current) drug therapy; Z88.8 Allergy status to other drugs, medicaments and biological substances; W17.89XA Other fall from one level to another, initial encounter; Y93.89 Activity, other specified; Y92.89 Other specified places as the place of occurrence of the external cause; Y99.8 Other external cause status
CPT/HCPCS: 29105; 73030; 73090; 73110